=== PATIENT | male | born 1970 | race Caucasian/White ===

== ENCOUNTER 2020-11-26 09:50 | Inpatient (IN) | payer OTHER ==
[2020-11-26] MEDS ORDERED: MAGNESIUM CITRATE 300 ML BOTTLE PO PRN (15:22)
[2020-11-26] MEDS ORDERED: NICOTINE POLACRILEX 2 MG GUM BUC PRN (15:22)
[2020-11-26] MEDS ORDERED: MENTHOL/PHENOL 1 EACH UD MM PRN (15:22)
[2020-11-26] MEDS ORDERED: BISMUTH SUBSALICYLATE 524 MG/30 ML UD PO PRN (15:22)
[2020-11-26] MEDS ORDERED: MAG HYDROX/AL HYDROX/SIMETH 30 ML UNIT-DOSE CUP PO PRN (15:22)
[2020-11-26] MEDS ORDERED: IBUPROFEN 400 MG TABLET (FP) PO PRN (15:22)
[2020-11-26] MEDS ORDERED: METHADONE HCL 10 MG TABLET (FOR DETOX USE ONLY) PO ONE (15:22)
[2020-11-26] MEDS ORDERED: MAGNESIUM HYDROX 2400MG/30ML ORAL SUSPENSION 30 ML CUP PO PRN (15:22)
[2020-11-26] MEDS ORDERED: ACETAMINOPHEN 325 MG TABLET (FP) PO PRN (15:22)
[2020-11-26] MEDS ORDERED: cloNIDine HCL 0.1 MG TABLET PO PRN (15:22)
[2020-11-26 16:20] VITALS: BMI 25.1
[2020-11-26] MEDS: MELATONIN 5 MG TABLETS PO SCH (22:30)
[2020-11-26] MEDS: THIAMINE HCL 100 MG TABLET (FP) PO SCH (22:30)
[2020-11-27] MEDS ORDERED: PATIENT'S OWN MEDICATION (NON-FORMULARY) (Amlodipine Besylate/Benazepril [Amlodipine-Benaz PO SCH (10:00)
[2020-11-27] MEDS ORDERED: METHADONE (DETOX) 20 MG, METHADONE (DETOX) 5 MG PO ONE (10:00)
[2020-11-27] MEDS ORDERED: METHADONE HCL 10 MG TABLET (FOR DETOX USE ONLY) ONE (10:03)
[2020-11-27] MEDS ORDERED: METHADONE HCL 5 MG TABLET (FOR DETOX USE ONLY) ONE (10:03)
[2020-11-27] MEDS: LISINOPRIL 10 MG TABLET PO SCH (10:41)
[2020-11-27] MEDS: PRENATAL VITAMINS W/ FOLIC ACID TABLET (FP) PO SCH (10:41)
[2020-11-27 11:44] LABS: HEMATOCRIT 41.1 % (35.4-49); MCH 32.1 pg (25.7-33.7); MEAN CELL VOLUME 94.4 fl (80-96); PLATELET COUNT 252 K/MM3 (134-434); RBC 4.36 M/mm3 (4.00-5.60); RDW 14.9 % (11.9-15.9); WHITE BLOOD COUNT 4.2 K/mm3 (4.0-10.0)
[2020-11-27] MEDS ORDERED: VENLAFAXINE HCL 150 MG E.R. CAPSULE PO SCH (11:45)
[2020-11-27 11:48] LABS: POTASSIUM 3.7 mmol/L (3.5-5.1)
[2020-11-27 11:56] LABS: BLOOD UREA NITROGEN 8.8 mg/dL (7-18); CALCIUM 9.2 mg/dL (8.5-10.1)
[2020-11-27 11:57] LABS: ALBUMIN 3.4 g/dl (3.4-5.0)
[2020-11-27 12:00] LABS: CREATININE 0.8 mg/dL (0.55-1.3)
[2020-11-27 12:01] LABS: BILIRUBIN,TOTAL 0.4 mg/dL (0.2-1); TOT PROT 6.9 g/dl (6.4-8.2)
[2020-11-27] MEDS: amLODIPine BESYLATE 2.5 MG TABLET (FP) PO SCH (13:19)
[2020-11-27] MEDS: SERTRALINE HCL 50 MG TABLET (FP) PO SCH (13:20)
[2020-11-27] MEDS: diazePAM 5 MG TABLET PO PRN ×2 (13:22→22:15)
[2020-11-27] MEDS: THIAMINE HCL 100 MG TABLET (FP) PO SCH (22:15)
[2020-11-27] MEDS: MELATONIN 5 MG TABLETS PO SCH (22:15)
[2020-11-28] MEDS ORDERED: METHADONE HCL 10 MG TABLET (FOR DETOX USE ONLY) PO ONE (10:00)
[2020-11-28] MEDS: PRENATAL VITAMINS W/ FOLIC ACID TABLET (FP) PO SCH (10:23)
[2020-11-28] MEDS: SERTRALINE HCL 50 MG TABLET (FP) PO SCH (10:23)
[2020-11-28] MEDS: VENLAFAXINE HCL 75 MG E.R. CAPSULES PO SCH (10:23)
[2020-11-28] MEDS: LISINOPRIL 10 MG TABLET PO SCH (10:24)
[2020-11-28] MEDS ORDERED: diazePAM 5 MG TABLET PO PRN (11:35)
[2020-11-28] MEDS: amLODIPine BESYLATE 2.5 MG TABLET (FP) PO SCH (11:46)
[2020-11-28] MEDS: ACETAMINOPHEN 325 MG TABLET (FP) PO PRN (16:32)
[2020-11-28] MEDS: THIAMINE HCL 100 MG TABLET (FP) PO SCH (22:21)
[2020-11-28] MEDS: MELATONIN 5 MG TABLETS PO SCH (22:21)
[2020-11-29] MEDS ORDERED: METHADONE HCL 5 MG TABLET (FOR DETOX USE ONLY) ONE (09:32)
[2020-11-29] MEDS ORDERED: METHADONE HCL 10 MG TABLET (FOR DETOX USE ONLY) ONE (09:32)
[2020-11-29] MEDS ORDERED: METHADONE (DETOX) 10 MG, METHADONE (DETOX) 5 MG PO ONE (10:00)
[2020-11-29] MEDS: LISINOPRIL 10 MG TABLET PO SCH (10:29)
[2020-11-29] MEDS: PRENATAL VITAMINS W/ FOLIC ACID TABLET (FP) PO SCH (10:29)
[2020-11-29] MEDS: amLODIPine BESYLATE 2.5 MG TABLET (FP) PO SCH (10:30)
[2020-11-29] MEDS: VENLAFAXINE HCL 75 MG E.R. CAPSULES PO SCH (10:30)
[2020-11-29] MEDS: SERTRALINE HCL 50 MG TABLET (FP) PO SCH (10:30)
[2020-11-29] MEDS: ACETAMINOPHEN 325 MG TABLET (FP) PO PRN (13:01)
[2020-11-29] MEDS: METHOCARBAMOL 500 MG TABLET PO PRN (15:04)
[2020-11-29] MEDS ORDERED: diazePAM 2 MG TABLET PO ONE (22:00)
[2020-11-29] MEDS ORDERED: diazePAM 5 MG TABLET PO ONE (22:00)
[2020-11-29] MEDS: MELATONIN 5 MG TABLETS PO SCH (22:20)
[2020-11-29] MEDS: THIAMINE HCL 100 MG TABLET (FP) PO SCH (22:21)
[2020-11-30] MEDS: METHOCARBAMOL 500 MG TABLET PO PRN ×4 (02:10→22:54)
[2020-11-30] MEDS ORDERED: METHADONE HCL 10 MG TABLET (FOR DETOX USE ONLY) PO ONE (10:00)
[2020-11-30] MEDS: amLODIPine BESYLATE 2.5 MG TABLET (FP) PO SCH (10:22)
[2020-11-30] MEDS: VENLAFAXINE HCL 75 MG E.R. CAPSULES PO SCH (10:22)
[2020-11-30] MEDS: PRENATAL VITAMINS W/ FOLIC ACID TABLET (FP) PO SCH (10:23)
[2020-11-30] MEDS: SERTRALINE HCL 50 MG TABLET (FP) PO SCH (10:23)
[2020-11-30] MEDS: LISINOPRIL 10 MG TABLET PO SCH (10:23)
[2020-11-30] MEDS: MELATONIN 5 MG TABLETS PO SCH (22:15)
[2020-11-30] MEDS: THIAMINE HCL 100 MG TABLET (FP) PO SCH (22:15)
[2020-12-01] MEDS ORDERED: METHADONE HCL 5 MG TABLET (FOR DETOX USE ONLY) PO ONE (06:00)
[2020-12-01 09:47] VITALS: BP 125/77; PULSE 67; TEMP 97.8
== END 2020-12-01 10:05 | disposition home or self-care (01) | DRG 773 ==
LOC: YASAS 09:50 → Y6N 16:15
PROVIDERS: ADMIT Allergy & Immunology; ATTEND Allergy & Immunology
PROC: HZ2ZZZZ Detoxification Services for Substance Abuse Treatment (ICD-10-PCS; principal; 2020-11-26)
DX: F11.23 Opioid dependence with withdrawal (principal); F19.282 Other psychoactive substance dependence with psychoactive substance-induced sleep disorder; F19.24 Other psychoactive substance dependence with psychoactive substance-induced mood disorder; F32.9 Major depressive disorder, single episode, unspecified; I10 Essential (primary) hypertension; M54.5 Low back pain; G89.29 Other chronic pain; Z87.81 Personal history of (healed) traumatic fracture; Z72.0 Tobacco use
CPT/HCPCS: 36415; 80053; 85027; 86780; 93005; 93010; C9803; J0735; U0003

== ENCOUNTER 2022-11-28 11:58 | Inpatient (IN) | payer OTHER ==
[2022-11-28 13:50] VITALS: BMI 26.9
[2022-11-28] MEDS ORDERED: guaiFENesin 200 MG/10 ML 10 ML UNIT-DOSE CUPS PO PRN (17:49)
[2022-11-28] MEDS ORDERED: MAGNESIUM HYDROX 2400MG/30ML ORAL SUSPENSION 30 ML CUP PO PRN (17:49)
[2022-11-28] MEDS ORDERED: MAG HYDROX/AL HYDROX/SIMETH 30 ML UNIT-DOSE CUP PO PRN (17:49)
[2022-11-28] MEDS ORDERED: P-EPHED 60MG/TRIPROLIDI 2.5MG TABLET PO PRN (17:49)
[2022-11-28] MEDS ORDERED: IBUPROFEN 600 MG TABLET (FP) PO PRN (17:49)
[2022-11-28] MEDS ORDERED: ONDANSETRON *ODT* 4 MG TABLET SL PRN (17:49)
[2022-11-28] MEDS ORDERED: NICOTINE POLACRILEX 2 MG GUM BUC PRN (17:49)
[2022-11-28] MEDS ORDERED: NICOTINE 14 MG/24 HOURS TOPICAL PATCH TD PRN (17:49)
[2022-11-28] MEDS ORDERED: ACETAMINOPHEN 325 MG TABLET (FP) PO PRN (17:49)
[2022-11-28] MEDS ORDERED: METHOCARBAMOL 500 MG TABLET PO PRN (17:49)
[2022-11-28] MEDS ORDERED: IBUPROFEN 400 MG TABLET (FP) PO PRN (17:49)
[2022-11-28] MEDS ORDERED: DICYCLOMINE HCL 10 MG CAPSULE PO PRN (17:49)
[2022-11-28] MEDS ORDERED: POLYETHYLENE GLYCOL (HEALTHYLAX) 3350 17 GM PACKET PO PRN (17:49)
[2022-11-28] MEDS ORDERED: LOPERAMIDE HCL 2 MG CAPSULE PO PRN (17:49)
[2022-11-28] MEDS ORDERED: BENZOCAINE/MENTHOL (CHLORASEPTIC ) LOZENGE MM PRN (17:49)
[2022-11-28] MEDS ORDERED: BISMUTH SUBSALICYLATE 524 MG/30 ML PO PRN (17:49)
[2022-11-28] MEDS ORDERED: chlordiazePOXIDE HCL 25 MG CAPSULE PO PRN (17:52)
[2022-11-28] MEDS ORDERED: chlordiazePOXIDE HCL 25 MG CAPSULE PO ONE (17:52)
[2022-11-28] MEDS: chlordiazePOXIDE HCL 25 MG CAPSULE PO SCH (22:37)
[2022-11-28] MEDS: MELATONIN 5 MG TABLETS PO PRN (22:38)
[2022-11-28] MEDS: ATORVASTATIN CA 20 MG TABLET (FP) PO SCH (22:38)
[2022-11-28] MEDS: THIAMINE HCL 100 MG TABLET (FP) PO SCH (22:38)
[2022-11-29] MEDS: chlordiazePOXIDE HCL 25 MG CAPSULE PO SCH ×4 (05:59→22:20)
[2022-11-29] MEDS: ACETAMINOPHEN 325 MG TABLET (FP) PO PRN ×3 (06:01→19:57)
[2022-11-29] MEDS: SERTRALINE HCL 50 MG TABLET (FP) PO SCH (10:00)
[2022-11-29] MEDS ORDERED: amLODIPine BESYLATE 5 MG TABLET (FP) PO SCH (10:00)
[2022-11-29] MEDS ORDERED: LISINOPRIL 10 MG TABLET PO SCH (10:00)
[2022-11-29] MEDS: PRENATAL VITAMINS W/ FOLIC ACID TABLET (FP) PO SCH (10:01)
[2022-11-29] MEDS: VENLAFAXINE HCL 150 MG E.R. CAPSULE PO SCH (10:03)
[2022-11-29 11:36] LABS: CALCIUM 9.1 mg/dL (8.5-10.1)
[2022-11-29 11:37] LABS: BLOOD UREA NITROGEN 13.3 mg/dL (7-18)
[2022-11-29 11:39] LABS: CREATININE 0.8 mg/dL (0.55-1.3)
[2022-11-29 11:41] LABS: BILIRUBIN,TOTAL 0.4 mg/dL (0.2-1); TOT PROT 7.7 g/dl (6.4-8.2)
[2022-11-29 11:45] LABS: HEMATOCRIT 41.4 % (35.4-49); HEMOGLOBIN 14.1 GM/dL (11.7-16.9); MCHC 34.1 g/dl (32.0-35.9); MEAN CELL VOLUME 96.7 fl (80-96); MEAN PLT VOLUME 7.5 fl (7.5-11.1); PLATELET COUNT 177 10^3/uL (134-434); RBC 4.28 M/mm3 (4.00-5.60); RDW 14.6 % (11.9-15.9); WHITE BLOOD COUNT 5.4 K/mm3 (4.0-10.0)
[2022-11-29] MEDS: ATORVASTATIN CA 20 MG TABLET (FP) PO SCH (22:19)
[2022-11-29] MEDS: THIAMINE HCL 100 MG TABLET (FP) PO SCH (22:20)
[2022-11-29] MEDS: MELATONIN 5 MG TABLETS PO PRN (22:21)
[2022-11-30] MEDS: ACETAMINOPHEN 325 MG TABLET (FP) PO PRN (03:12)
[2022-11-30] MEDS: chlordiazePOXIDE HCL 25 MG CAPSULE PO SCH ×2 (05:14→10:34)
[2022-11-30 09:28] VITALS: BP 146/88; PULSE 82; RESP 16; TEMP 97.8
[2022-11-30] MEDS ORDERED: NON-FORMULARY MED PO SCH (10:00)
[2022-11-30] MEDS: PRENATAL VITAMINS W/ FOLIC ACID TABLET (FP) PO SCH (10:34)
[2022-11-30] MEDS: SERTRALINE HCL 50 MG TABLET (FP) PO SCH (10:34)
[2022-11-30] MEDS: VENLAFAXINE HCL 150 MG E.R. CAPSULE PO SCH (10:35)
[2022-11-30 11:07] LABS: SGOT/AST 82 U/L (15-37); SGPT/ALT 143 U/L (13-61)
[2022-12-01] MEDS ORDERED: chlordiazePOXIDE HCL 10 MG CAPSULE PO PRN
[2022-12-01] MEDS ORDERED: chlordiazePOXIDE HCL 10 MG CAPSULE PO SCH (05:00)
[2022-12-02] MEDS ORDERED: chlordiazePOXIDE HCL 10 MG CAPSULE PO SCH (05:00)
[2022-12-03] MEDS ORDERED: chlordiazePOXIDE HCL 10 MG CAPSULE PO ONE (05:00)
== END 2022-11-30 10:00 | disposition left against medical advice (07) | DRG 770 ==
LOC: YASAS 11:58 → Y6N 18:32
PROVIDERS: ADMIT Allergy & Immunology; ATTEND Surgery
PROC: HZ2ZZZZ Detoxification Services for Substance Abuse Treatment (ICD-10-PCS; principal; 2022-11-28)
DX: F11.23 Opioid dependence with withdrawal (principal); F10.230 Alcohol dependence with withdrawal, uncomplicated; F17.210 Nicotine dependence, cigarettes, uncomplicated; F19.282 Other psychoactive substance dependence with psychoactive substance-induced sleep disorder; F19.24 Other psychoactive substance dependence with psychoactive substance-induced mood disorder; F32.9 Major depressive disorder, single episode, unspecified; E78.5 Hyperlipidemia, unspecified; I10 Essential (primary) hypertension; M54.50 Low back pain, unspecified; G89.29 Other chronic pain; R74.8 Abnormal levels of other serum enzymes; Z85.47 Personal history of malignant neoplasm of testis; Z90.79 Acquired absence of other genital organ(s)
CPT/HCPCS: 36415; 80053; 82140; 84450; 84460; 85027; 86780; 87811; C9803-CS; U0003; U0005

== ENCOUNTER 2024-03-16 08:25 | Inpatient (IN) | payer OTHER ==
[2024-03-16 09:33] VITALS: BMI 26.4
[2024-03-16] MEDS ORDERED: PATIENT'S OWN MEDICATION (NON-FORMULARY) (Amlodipine Besylate/Benazepril [Amlodipine-Benaz PO SCH (10:00)
[2024-03-16] MEDS ORDERED: ACETAMINOPHEN 325 MG TABLET (FP) PO PRN (10:10)
[2024-03-16] MEDS ORDERED: POLYETHYLENE GLYCOL (HEALTHYLAX) 3350 17 GM PACKET PO PRN (10:10)
[2024-03-16] MEDS ORDERED: LOPERAMIDE HCL 2 MG CAPSULE PO PRN (10:10)
[2024-03-16] MEDS ORDERED: BENZOCAINE/MENTHOL (CHLORASEPTIC ) LOZENGE MM PRN (10:10)
[2024-03-16] MEDS ORDERED: BISMUTH SUBSALICYLATE 262 MG/15 ML BTL PO PRN (10:10)
[2024-03-16] MEDS ORDERED: IBUPROFEN 600 MG TABLET (FP) PO PRN (10:10)
[2024-03-16] MEDS ORDERED: NICOTINE POLACRILEX 2 MG LOZENGE BC PRN (10:10)
[2024-03-16] MEDS ORDERED: MAG HYDROX/AL HYDROX/SIMETH 30 ML UNIT-DOSE CUP PO PRN (10:10)
[2024-03-16] MEDS ORDERED: NICOTINE POLACRILEX 2 MG GUM BUC PRN (10:10)
[2024-03-16] MEDS ORDERED: guaiFENesin 600 MG TABLET.ER (FP) PO PRN (10:10)
[2024-03-16] MEDS ORDERED: MAGNESIUM HYDROX 2400MG/30ML ORAL SUSPENSION 30 ML CUP PO PRN (10:10)
[2024-03-16] MEDS ORDERED: DICYCLOMINE HCL 10 MG CAPSULE PO PRN (10:10)
[2024-03-16] MEDS ORDERED: IBUPROFEN 400 MG TABLET (FP) PO PRN (10:10)
[2024-03-16] MEDS ORDERED: BENZONATATE 200 MG CAPSULE PO PRN (10:10)
[2024-03-16] MEDS ORDERED: hydrOXYzine PAMOATE 25 MG CAPSULE (FP) PO ONE (11:01)
[2024-03-16] MEDS ORDERED: ONDANSETRON *ODT* 4 MG TABLET ONE (11:01)
[2024-03-16] MEDS: ONDANSETRON *ODT* 4 MG TABLET SL PRN (11:02)
[2024-03-16] MEDS: hydrOXYzine PAMOATE 25 MG CAPSULE (FP) PO PRN (11:02)
[2024-03-16] MEDS ORDERED: chlordiazePOXIDE HCL 25 MG CAPSULE ONE (11:12)
[2024-03-16] MEDS ORDERED: LISINOPRIL 10 MG TABLET ONE (11:13)
[2024-03-16] MEDS: chlordiazePOXIDE HCL 25 MG CAPSULE PO SCH (11:14)
[2024-03-16] MEDS: LISINOPRIL 10 MG TABLET PO SCH (11:14)
[2024-03-16] MEDS: amLODIPine BESYLATE 2.5 MG TABLET (FP) PO SCH (13:01)
[2024-03-16] MEDS: chlordiazePOXIDE HCL 25 MG CAPSULE PO PRN (13:05)
[2024-03-16] MEDS: ATORVASTATIN CA 20 MG TABLET (FP) PO SCH (13:05)
[2024-03-16] MEDS: MELATONIN 5 MG TABLETS PO SCH (22:18)
[2024-03-16] MEDS: THIAMINE 100 MG TABLET PO SCH (22:18)
[2024-03-17] MEDS: METHOCARBAMOL 500 MG TABLET PO PRN (03:33)
[2024-03-17] MEDS: PRENATAL VITAMINS W/ FOLIC ACID TABLET (FP) PO SCH (10:27)
[2024-03-17 12:00] LABS: POTASSIUM 4.2 mmol/L (3.5-5.1)
[2024-03-17 12:06] LABS: CALCIUM 9.3 mg/dL (8.5-10.1)
[2024-03-17 12:07] LABS: BLOOD UREA NITROGEN 9.2 mg/dL (7-18)
[2024-03-17 12:09] LABS: CREATININE 0.8 mg/dL (0.55-1.3)
[2024-03-17 12:10] LABS: BILIRUBIN,TOTAL 0.6 mg/dL (0.2-1); TOT PROT 7.4 g/dl (6.4-8.2)
[2024-03-17 12:21] LABS: HEMOGLOBIN 13.7 GM/dL (11.7-16.9); MCH 33.8 pg (25.7-33.7); MCHC 34.3 g/dl (32.0-35.9); MEAN CELL VOLUME 98.7 fl (80-96); MEAN PLT VOLUME 7.7 fl (7.5-11.1); PLATELET COUNT 125 10^3/uL (134-434); RBC 4.05 M/mm3 (4.00-5.60); RDW 14.2 % (11.9-15.9); WHITE BLOOD COUNT 3.1 K/mm3 (4.0-10.0)
[2024-03-18] MEDS: chlordiazePOXIDE HCL 25 MG CAPSULE PO SCH (05:41)
[2024-03-19] MEDS: chlordiazePOXIDE HCL 10 MG CAPSULE PO PRN (01:07)
[2024-03-19] MEDS: chlordiazePOXIDE HCL 10 MG CAPSULE PO SCH (05:56)
[2024-03-19 09:04] VITALS: BP 136/90; PULSE 61; RESP 17; TEMP 97.7
[2024-03-20] MEDS ORDERED: chlordiazePOXIDE HCL 10 MG CAPSULE PO SCH (05:00)
[2024-03-21] MEDS ORDERED: chlordiazePOXIDE HCL 10 MG CAPSULE PO ONE (05:00)
== END 2024-03-19 10:53 | disposition home or self-care (01) | DRG 775 ==
LOC: YASAS 08:25 → Y3N 11:10
PROVIDERS: ADMIT Allergy & Immunology; ATTEND Surgery
PROC: HZ2ZZZZ Detoxification Services for Substance Abuse Treatment (ICD-10-PCS; principal; 2024-03-16)
DX: F10.230 Alcohol dependence with withdrawal, uncomplicated (principal); F13.230 Sedative, hypnotic or anxiolytic dependence with withdrawal, uncomplicated; F17.210 Nicotine dependence, cigarettes, uncomplicated; F41.9 Anxiety disorder, unspecified; E78.5 Hyperlipidemia, unspecified; I10 Essential (primary) hypertension; Z85.47 Personal history of malignant neoplasm of testis; Z90.79 Acquired absence of other genital organ(s)
CPT/HCPCS: 36415; 80053; 80305; 85027; 86780; 93005; 93010; Q0162